=== PATIENT | male | born 1985 | race Caucasian/White ===

== ENCOUNTER → 2020-10-07 | Outpatient (CLI) | payer OTHER ==
[~2020-10-07] MED LIST: ANTIBIOTIC O500 U/GM TP; CORTISPORIN 1%-10 M1 OT; DOXY 100100 MG PO; KEFLEX500 MG PO; MOTRIN800 MG PO; NKHM; Tobrex Ophth S2.5 ML OPH; VICODIN 5/500 505 MG PO
== END | disposition home or self-care (01) ==
LOC: LAB 02:27
PROVIDERS: ATTEND Internal Medicine
DX: Z20.6 Contact with and (suspected) exposure to human immunodeficiency virus [HIV] (principal)

== ENCOUNTER → 2021-04-09 | Outpatient (CLI) | payer OTHER | END | disposition home or self-care (01) | LOC: LAB 10:33 | PROVIDERS: ATTEND Student in an Organized Health Care Education/Training Program | DX: Z72.51 High risk heterosexual behavior (principal) ==

== ENCOUNTER 2021-05-11 11:58 | Emergency (ER) | payer OTHER ==
[~2021-05-11] VITALS: Ht 172.7 cm; Wt 80.7 kg
[2021-05-11 12:21] LABS: BASO # 0.1 10*3/uL (0.0-0.1); BASO % 0.6 % (0.0-1.0); EOS # 0.2 10*3/uL (0.0-0.4); EOS % 1.6 % (1.0-4.0); HEMATOCRIT 49.6 % (42.0-52.0); LYMPH % 18.5 % (27.0-41.0); MEAN CORPUSCULAR HGB 29.3 pg (27.0-31.0); MEAN CORPUSCULAR HGB CONC 32.9 g/dl (33.0-37.0); MEAN PLATELET VOLUME 10.3 fl (9.6-12.3); MONO # 0.7 10*3/uL (0.1-1.0); MONO % 6.6 % (3.0-9.0); NEUT # 7.8 10*3/uL (2.3-7.9); NEUT % 72.3 % (47.0-73.0); PLATELET COUNT AUTOMATED 253 10*3/uL (130-400); RED BLOOD COUNT 5.57 10*6/uL (4.50-5.90); WHITE BLOOD COUNT 10.8 10*3/uL (4.8-10.8)
[2021-05-11 12:39] LABS: ALBUMIN 4.2 gm/dl (3.1-4.5); ALKALINE PHOSPHATASE 82 U/L (45-117); BUN 14 mg/dl (7-24); CHLORIDE 109 mmol/L (98-107); CREATININE 1.13 mg/dL (0.70-1.30); LIPASE 85 U/L (73-393); SGOT/AST 17 IU/L (3-35); SGPT/ALT 25 U/L (12-78); SODIUM 144 mmol/L (136-145); TOTAL PROTEIN 7.5 gm/dL (6.4-8.2)
[2021-05-11 13:04] LABS: BILIRUBIN Negative (Negative); BLOOD 3+ (Negative); CLARITY Clear (Clear); COLOR Dark Yellow (Yellow); GLUCOSE Negative (Negative); KETONE Trace (Negative); LEUKO ESTERASE Trace (Negative); NITRITE Negative (Negative); PH 5.5 (4.5-8.0); SPECIFIC GRAVITY 1.025 (1.001-1.030)
[2021-05-11 13:16] LABS: BACTERIA 1+; EPITHELIAL CELLS 0-2; MUCOUS 3+; RBC 31-40 rbc/hpf (0-2)
[2021-05-11] MEDS ORDERED: TYLENOL325 M1 PO (13:23)
[2021-05-11] MEDS ORDERED: NAPROXEN250 MG PO (13:23)
[2021-05-11] MEDS ORDERED: REGLAN10 M1 PO (13:23)
== END 2021-05-11 13:30 | disposition home or self-care (01) ==
LOC: ED 11:58
PROVIDERS: Emergency Medicine
DX: N20.0 Calculus of kidney (principal); F17.200 Nicotine dependence, unspecified, uncomplicated

== ENCOUNTER 2023-01-13 14:40 | Emergency (ER) | payer OTHER ==
[~2023-01-13] VITALS: Ht 172.7 cm; Wt 77.1 kg
[~2023-01-13 14:40] MED LIST changes: +NAPROXEN250 MG PO; +REGLAN10 M1 PO; +TYLENOL325 M1 PO
[2023-01-13] MEDS ORDERED: AMOX-CLAV 875-1 EACH PO (14:51)
== END 2023-01-13 15:39 | disposition home or self-care (01) ==
LOC: ED 14:40
DX: J03.90 Acute tonsillitis, unspecified (principal); H61.21 Impacted cerumen, right ear; Z87.442 Personal history of urinary calculi

== ENCOUNTER → 2025-03-11 | Outpatient (CLI) | payer OTHER ==
[~2025-03-11] MED LIST changes: +AMOX-CLAV 875-1 EACH PO
== END | disposition home or self-care (01) ==
LOC: US 07:51
PROVIDERS: ATTEND Family Medicine
DX: N20.0 Calculus of kidney (principal); N32.89 Other specified disorders of bladder; R16.0 Hepatomegaly, not elsewhere classified; R10.84 Generalized abdominal pain; R10.20 Pelvic and perineal pain unspecified side

== ENCOUNTER → 2025-03-24 | Outpatient (CLI) | payer OTHER ==
[2025-03-24 08:30] LABS: BILIRUBIN Negative (Negative); BLOOD Negative (Negative); CLARITY Clear (Clear); COLOR Yellow (Yellow); KETONE Negative (Negative); LEUKO ESTERASE Trace (Negative); NITRITE Negative (Negative); PH 6.5 (4.5-8.0); SPECIFIC GRAVITY 1.025 (1.001-1.030); UROBILINOGEN 0.2 E.U./dl (0.0-1.0)
[2025-03-24 08:39] LABS: MUCOUS TRACE
== END | disposition home or self-care (01) ==
LOC: CT 01:31
PROVIDERS: Nurse Practitioner; ATTEND Urology
DX: N20.0 Calculus of kidney (principal); K42.9 Umbilical hernia without obstruction or gangrene; R53.83 Other fatigue